=== PATIENT | female | born 1965 | race Two or more races ===

== ENCOUNTER 2016-09-20 07:39 | Emergency (ER) | payer OTHER ==
[~2016-09-20] VITALS: Ht 162.6 cm; Wt 95.3 kg
[~2016-09-20 07:39] MED LIST: ACETAMINOPHEN-1 EAC1 ORAL; ALBUTEROL SULF8.5 GM INH; CYCLOBENZAPRINE10 MG ORAL; IBUPROFEN600 MG ORAL; IBUPROFEN800 MG ORAL; LEVAQUIN500 MG ORAL; MONISTAT 744 GM VG; NITROFURANTOIN100 M2 ORAL; NKM; NORCO 5-325 TA1 EACH ORAL; PRILOSEC20 MG ORAL; TRAMADOL HCL50 MG ORAL; VENTOLIN HFA18 GM INH; ZOFRAN ODT4 MG ORAL
[2016-09-20] MEDS ORDERED: BACTRIM DS TAB1 EAC1 ORAL (08:17)
[2016-09-20 08:37] LABS: APPEARANCE,URINE CLEAR; KETONES,URINE NEGATIVE (NEGATIVE); LEUKOCYTE ESTERASE ,URINE 1+ (NEGATIVE); NITRITE,URINE NEGATIVE (NEGATIVE); PH,URINE 5 (4.5-8.0); PROTEIN,URINE NEGATIVE (NEGATIVE); UROBILINOGEN,URINE NORMAL MG/DL (0.0-1.0)
--- NOTE | 2016-09-20 08:39 | Emergency Room Report ---
History of Present Illness General Chief Complaint: General Complaint Source: Patient Present Illness HPI 51 YO F with right sided nipple/breast ttp since yesterday and able to express "discharge" from nipple with squeezing. Denies fever/chills, chance of , current breast feeding. Denies noticeable rash or appreciable warmth to area. Never had this before. On Ros, endorsing dysuria, polyuria. Allergies: Coded Allergies: PENICILLINS (Verified Allergy, Intermediate, 01/05/15) CEPHALEXIN (Unverified Adverse Reaction, Mild, 09/20/16) Rash Patient History Past Medical History: none Past Surgical History: none Pertinent Family History: none Social History: Denies: alcohol use, drug use, smoking Last Menstrual Period: 09/03/16 Now: No Immunizations: UTD Reviewed Nursing Documentation: PMH: Agreed, PSxH: Agreed Nursing Documentation-PMH Past Medical History: No History, Except For Hx Asthma: Yes Review of Systems All Other Systems: negative except mentioned in HPI Physical Exam Vital Signs Date Time Temp Pulse Resp B/P Pulse Ox O2 Delivery O2 Flow Rate FiO2 09/20/16 07:47 97.5 84 15 100 Room Air Sp02 EP Interpretation: reviewed, normal General Appearance: normal inspection, well appearing, no apparent distress, alert Head: atraumatic ENT: normal ENT inspection, hearing grossly normal, normal voice Neck: normal inspection, full range of motion, supple, no bony tend Respiratory: normal inspection, lungs clear, normal breath sounds, no respiratory distress, no retraction, no wheezing Cardiovascular #1: regular rate, rhythm, no edema Gastrointestinal: normal inspection, normal bowel sounds, non tender, soft, no guarding, no hernia Genitourinary: no CVA tenderness Musculoskeletal: normal inspection, back normal, normal range of motion, Izabella' s Sign negative Neurologic: normal inspection, alert, oriented x3, responsive, speech normal Psychiatric: normal inspection, judgement/insight normal, mood/affect normal Skin: other - Done with [employer] present: Examined right breast: significant ttp to right nipple/areola. Mild swelling of nipple. No active discharge or bleeding. Medical Decision Making Diagnostic Impression: Primary Impression: Dysuria Additional Impression: Mastitis in female ER Course Likely right sided mastitis, cellulitis. Patient endorses PCN allergy and adverse reaction to Keflex. Will Rx DS Bactrim UA: 2-4WBC, few bacteria. Not obvious UTI, could be early. bactrim should cover concomitant UTI DC home Last Vital Signs Date Time Temp Pulse Resp B/P Pulse Ox O2 Delivery O2 Flow Rate FiO2 09/20/16 08:03 80 14 Room Air 09/20/16 07:47 97.5 100 Status: improved Disposition: HOME, SELF-CARE Condition: Improved Scripts Trimethoprim/Sulfamethoxazole 160/800* (BACTRIM DS TABLET*) 1 Each Tablet 1 TAB ORAL Q12H for 7 Days, #14 TAB 0 Refills Prov: BISHOP HOOK M.D. 09/20/16 Referrals: [facility],REFERRING (PCP) Patient Instructions: Mastitis, [id number] Additional Instructions: - Take all antibiotics as prescribed - Apply hot compress to right breast/nipple 3x a day - Follow up with your primary doctor for referral to specialist for worsening pain/swelling to right breast BISHOP HOOK M.D. Sep 20, 2016 08:39
[2016-09-20 08:45] LABS: BACTERIA,URINE FEW /HPF; SQUAMOUS EPITHELIAL CELL,UR FEW /LPF (NONE/OCC)
[2016-09-20 09:08] VITALS: BP 124/70
== END 2016-09-20 09:10 | disposition home or self-care (01) ==
LOC: EMR 08:20
DX: R30.0 Dysuria (principal); N61.0 Mastitis without abscess; J45.909 Unspecified asthma, uncomplicated; Z88.0 Allergy status to penicillin
CPT/HCPCS: 81003; 81025; 99283

== ENCOUNTER 2017-01-14 14:40 | Emergency (ER) | payer OTHER ==
[~2017-01-14] VITALS: Ht 162.6 cm; Wt 95.3 kg
[~2017-01-14 14:40] MED LIST changes: +BACTRIM DS TAB1 EAC1 ORAL
[2017-01-14] MEDS ORDERED: ALBUTEROL SULF8.5 GM INH (14:51)
[2017-01-14] MEDS ORDERED: PREDNISONE20 MG ORAL (14:51)
--- NOTE | 2017-01-14 14:58 | Emergency Room Report ---
History of Present Illness General Chief Complaint: Dyspnea/Respdistress Source: Patient Present Illness HPI 51YOF walk-in with SOB for 2 days subjective dyspnea. + history of asthma. Non -smoker. Recent URI. No fever/chills Ran out of home ventolin last night Never intubated/BIPAPed in the past for asthma. Allergies: Coded Allergies: PENICILLINS (Verified Allergy, Intermediate, 01/05/15) CEPHALEXIN (Unverified Adverse Reaction, Mild, 09/20/16) Rash Patient History Past Medical History: asthma Past Surgical History: none Pertinent Family History: none Social History: Denies: alcohol use, drug use, smoking Now: No Immunizations: UTD Reviewed Nursing Documentation: PMH: Agreed, PSxH: Agreed Nursing Documentation-PMH Hx Asthma: Yes Review of Systems All Other Systems: negative except mentioned in HPI Physical Exam Vital Signs Date Time Temp Pulse Resp B/P Pulse Ox O2 Delivery O2 Flow Rate FiO2 01/14/17 14:41 98.1 82 15 143/78 98 Sp02 EP Interpretation: reviewed, normal General Appearance: normal inspection, well appearing, no apparent distress, alert, GCS 15, non-toxic, other - Ambulating back and forth from room to bathroom in ED without distress Head: normocephalic, atraumatic Eyes: bilateral eye EOMI, bilateral eye PERRL ENT: normal ENT inspection, hearing grossly normal, normal voice Neck: normal inspection, full range of motion, supple, no bony tend Respiratory: normal inspection, lungs clear, normal breath sounds, no respiratory distress, no retraction, no accessory muscle use, no wheezing, speaking full sentences Cardiovascular #1: regular rate, rhythm, no edema Gastrointestinal: normal inspection, normal bowel sounds, non tender, soft, no guarding, no hernia Genitourinary: no CVA tenderness Musculoskeletal: normal inspection, back normal, normal range of motion, Izabella' s Sign negative Neurologic: normal inspection, alert, oriented x3, responsive, wastewater analyst III-XII nml as tested, motor strength/tone normal, speech normal Psychiatric: normal inspection, judgement/insight normal, mood/affect normal, anxious Skin: normal inspection, normal color, no rash Lymphatic: normal inspection Medical Decision Making Diagnostic Impression: Primary Impression: Dyspnea Qualified Codes: R06.00 - Dyspnea, unspecified ER Course - VSS. Afebrile. Not hypoxic. Not tachypnic. - ?even if this is asthma attack. However recent URI symptoms could have triggered. - Significant component of anxiety - Per PERC no need for d-dimer. Likely low probability of PE. Also ECG does not show sinus tach or S1Q3T3 or right heart strain - ECG is NSR. No ischemia. Unlikely ACS. - Improved symptoms after albuterol - Lungs CTAB. Low suspicion for PNA, CHF - Prednisone given in ED along with Rx - Rx Ventolin PMD followup as needed DC EKG Diagnostic Results Rate: normal Rhythm: NSR ST Segments: no acute changes ASA given to the pt in ED: No Chest X-Ray Diagnostic Results Chest X-Ray Diagnostic Results : Chest X-Ray Ordered: Yes # of Views/Limited/Complete: 1 View Indication: Shortness of Breath EP Interpretation: Yes Interpretation: no consolidation, no effusion, no pneumothorax, no acute cardiopulmonary disease Impression: No acute disease Interpreting ER Provider: Electronically signed by Dr Hook Last Vital Signs Date Time Temp Pulse Resp B/P Pulse Ox O2 Delivery O2 Flow Rate FiO2 01/14/17 14:41 98.1 82 15 143/78 98 Status: improved Disposition: HOME, SELF-CARE Condition: Improved Scripts Prednisone* (PREDNISONE*) 20 Mg Tablet 40 MG ORAL DAILY for 3 Days, #3 TAB Prov: BISHOP HOOK M.D. 01/14/17 Albuterol Sulfate* (ALBUTEROL SULFATE MDI*) 8.5 Gm Hfa.aer.ad 2 PUFF INH Q6H, #1 EA 0 Refills Prov: BISHOP HOOK M.D. 01/14/17 Patient Instructions: Asthma, Adult, [id number] Additional Instructions: - Take prednisone each morning next 3 days - Use albuterol pump as needed - Return to ER for worsening SOB, chest pain BISHOP HOOK M.D. Jan 14, 2017 14:58
[2017-01-14] MEDS ORDERED: PredniSONE 20mg tab ORAL ONE (15:00)
[2017-01-14] MEDS ORDERED: Albuterol ud Inhalation HHN ONE (15:00)
[2017-01-14 15:01] VITALS: BP 143/78
[2017-01-14 15:38] VITALS: BP 125/75
== END 2017-01-14 15:40 | disposition home or self-care (01) ==
LOC: EMR 15:40
DX: R06.00 Dyspnea, unspecified (principal); J45.909 Unspecified asthma, uncomplicated; Z88.0 Allergy status to penicillin; Z88.1 Allergy status to other antibiotic agents
CPT/HCPCS: 93005; 94640; 94664; 99284

== ENCOUNTER 2017-03-10 14:17 | Emergency (ER) | payer OTHER ==
[~2017-03-10] VITALS: Ht 165.1 cm; Wt 96.2 kg
[~2017-03-10 14:17] MED LIST changes: +PREDNISONE20 MG ORAL
[2017-03-10 14:33] VITALS: BP 132/91
[2017-03-10] MEDS ORDERED: Vancomycin 1gm inj IVPB ONE (14:44)
[2017-03-10] MEDS ORDERED: fentaNYL 100 mcg/2 mL IV ONE (14:45)
[2017-03-10] MEDS ORDERED: Ketorolac 30mg Inj IV ONE (14:45)
[2017-03-10] MEDS ORDERED: Vancomycin 1 GM in NS 275 ML IV ONE (14:45)
[2017-03-10 14:48] LABS: BASOPHILS % (AUTO) 1.3 % (0.0-2.0); EOSINOPHILS % (AUTO) 2.3 % (0.0-3.0); LYMPHOCYTES % (AUTO) 47.5 % (20.0-45.0); MEAN CORPUSCULAR HGB CONC 32.9 G/DL (32.0-36.0); MEAN CORPUSCULAR VOLUME 91 FL (80-99); MEAN PLATELET VOLUME 7.8 FL (6.5-10.1); MONOCYTES % (AUTO) 8.1 % (1.0-10.0); NEUTROPHILS % (AUTO) 40.9 % (45.0-75.0); PLATELET COUNT 217 K/UL (150-450); RED CELL DISTRIBUTION WIDTH 12.3 % (11.6-14.8); WHITE BLOOD COUNT 7.1 K/UL (4.8-10.8)
[2017-03-10 15:10] LABS: ALANINE AMINOTRANSFERASE 15 U/L (3-33); ALBUMIN/GLOBULIN RATIO 1.5 (1.0-2.7); ANION GAP 12 (5-15); ASPARTATE AMINO TRANSFERASE 15 U/L (5-40); CALCIUM 9.2 mg/dL (8.6-10.2); CARBON DIOXIDE 25 mEQ/L (20-30); CHLORIDE 103 mEQ/L (98-107); CREATININE 0.8 mg/dL (0.5-0.9); GLOMERULAR FILTRATION RATE > 60 mL/min (>60); HEMOLYSIS 9; POTASSIUM 4.3 mEQ/L (3.4-4.9); SODIUM 140 mEQ/L (135-145); TOTAL PROTEIN 6.8 g/dL (6.6-8.7)
[2017-03-10] MEDS ORDERED: Tetanus/Diptheria/Pertussis Vaccine 0.5ml Syr IM ONE ×2 (15:21→15:30)
--- NOTE | 2017-03-10 15:22 | Emergency Room Report ---
History of Present Illness General Chief Complaint: Pain Source: Patient Present Illness HPI Patient presents with worsening infection of her right foot. She traveled to [place] and had tight shoes that caused a blister. This has gotten more infected and worsened even with local care with Neosporin. Her tetanus is not up to date. The pain is severe. She's also had swelling and redness there. She denies any calf pain. She denies diabetes. Pain 20/10 (though in no distress), sharp, swelling radiated towards ankle. Able to ambulate. No fevers, chills, SOB, cough, hemoptysis, dysuria. Allergies: Coded Allergies: PENICILLINS (Verified Allergy, Intermediate, 01/05/15) CEPHALEXIN (Unverified Adverse Reaction, Mild, 09/20/16) Rash Patient History Past Medical History: see triage record Social History: Denies: smoking Social History Narrative with children Reviewed Nursing Documentation: PMH: Agreed, PSxH: Agreed Nursing Documentation-PMH Hx Asthma: Yes Review of Systems All Other Systems: negative except mentioned in HPI Physical Exam Vital Signs Date Time Temp Pulse Resp B/P (MAP) Pulse Ox O2 Delivery O2 Flow Rate FiO2 03/10/17 14:22 98.1 72 15 132/91 99 Room Air Sp02 EP Interpretation: reviewed, normal General Appearance: well appearing, no apparent distress, GCS 15 Head: normocephalic Eyes: bilateral eye normal inspection ENT: moist mucus membranes Neck: supple Respiratory: lungs clear, normal breath sounds Cardiovascular #1: regular rate, rhythm Cardiovascular #2: 2+ radial (R) Gastrointestinal: normal inspection, normal bowel sounds, non tender, no mass, non-distended Musculoskeletal: digits/nails normal, gait/station normal, normal range of motion, inflammation, swelling - foot Neurologic: alert, oriented x3, motor strength/tone normal, sensory intact Psychiatric: mood/affect normal Skin: abrasions - and ulceration dorsum or R foot Medical Decision Making Diagnostic Impression: Primary Impression: Cellulitis of right foot ER Course Patient presents with worsening infection on R foot. DDx: cellulitis, abscess. Doubt osteo. Consider MRSA and strep. Needs tetanus. Fairly significant infection with pain. Will treat with IV vanco and analgesia. Patient does not want x-ray and it is doubtful one would help with diagnosis or treatment. Need to exclude diabetes or renal disease. Labs unremarkable. Improved with analgesia. Discussed importance of elevation. Patient stable for outpatient observation and treatment. Laboratory Tests Test 03/10/17 14:30 White Blood Count 7.1 K/UL (4.8-10.8) Red Blood Count 4.40 M/UL (4.20-5.40) Hemoglobin 13.2 G/DL (12.0-16.0) Hematocrit 40.1 % (37.0-47.0) Mean Corpuscular Volume 91 FL (80-99) Mean Corpuscular Hemoglobin 30.0 PG (27.0-31.0) Mean Corpuscular Hemoglobin Concent 32.9 G/DL (32.0-36.0) Red Cell Distribution Width 12.3 % (11.6-14.8) Platelet Count 217 K/UL (150-450) Mean Platelet Volume 7.8 FL (6.5-10.1) Neutrophils (%) (Auto) 40.9 % (45.0-75.0) L Lymphocytes (%) (Auto) 47.5 % (20.0-45.0) H Monocytes (%) (Auto) 8.1 % (1.0-10.0) Eosinophils (%) (Auto) 2.3 % (0.0-3.0) Basophils (%) (Auto) 1.3 % (0.0-2.0) Sodium Level 140 mEQ/L (135-145) Potassium Level 4.3 mEQ/L (3.4-4.9) Chloride Level 103 mEQ/L (98-107) Carbon Dioxide Level 25 mEQ/L (20-30) Anion Gap 12 (5-15) Blood Urea Nitrogen 14 mg/dL (7-23) Creatinine 0.8 mg/dL (0.5-0.9) Estimate Glomerular Filtration Rate > 60 mL/min (>60) Glucose Level 93 mg/dL (74-106) Calcium Level 9.2 mg/dL (8.6-10.2) Total Bilirubin 0.4 mg/dL (0.0-1.2) Aspartate Amino Transferase (AST) 15 U/L (5-40) Alanine Aminotransferase (ALT) 15 U/L (3-33) Alkaline Phosphatase 49 U/L (35-104) Total Protein 6.8 g/dL (6.6-8.7) Albumin 4.1 g/dL (3.5-5.2) Globulin 2.7 g/dL Albumin/Globulin Ratio 1.5 (1.0-2.7) Last Vital Signs Date Time Temp Pulse Resp B/P (MAP) Pulse Ox O2 Delivery O2 Flow Rate FiO2 03/10/17 16:11 70 16 128/87 99 Room Air 03/10/17 16:11 98.1 Status: improved Disposition: HOME, SELF-CARE Condition: Improved Scripts Ibuprofen* (MOTRIN*) 600 Mg Tablet 600 MG ORAL Q6H Y for For Pain, #20 TAB Prov: Francisco Childers M.D. 03/10/17 Tramadol Hcl* (ULTRAM*) 50 Mg Tablet 50 MG ORAL Q6H Y for For Pain, #16 TAB 0 Refills Prov: Francisco Childers M.D. 03/10/17 Levofloxacin* (LEVAQUIN*) 500 Mg Tablet 500 MG ORAL DAILY, #7 TAB Prov: Francisco Childers M.D. 03/10/17 Francisco Childers M.D. Mar 10, 2017 15:22
[2017-03-10] MEDS ORDERED: Bacitracin Oint UD TOPIC ONE (15:30)
[2017-03-10] MEDS ORDERED: IBUPROFEN600 MG ORAL (15:33)
[2017-03-10] MEDS ORDERED: TRAMADOL HCL50 MG ORAL (15:33)
[2017-03-10] MEDS ORDERED: LEVAQUIN500 MG ORAL (15:33)
[2017-03-10 16:11] VITALS: BP_SYST 128; BP_SYST 132; BP_DIAS 87; BP_DIAS 91
== END 2017-03-10 16:12 | disposition home or self-care (01) ==
LOC: EMR 14:50
DX: L03.115 Cellulitis of right lower limb (principal); Z23 Encounter for immunization; J45.909 Unspecified asthma, uncomplicated; Z88.0 Allergy status to penicillin; Z88.1 Allergy status to other antibiotic agents
CPT/HCPCS: 36415; 80053; 85025; 90471; 90715; 96365; 96375; 99284; J1885; J2405; J3010; J3370; J7050

== ENCOUNTER 2017-06-20 08:52 | Emergency (ER) | payer OTHER ==
[~2017-06-20] VITALS: Ht 162.6 cm; Wt 90.7 kg
[2017-06-20] MEDS ORDERED: Sodium Chloride 500ML 500 ML IV ONE (09:14)
[2017-06-20] MEDS ORDERED: Morphine Sulfate 4mg/ml Inj IVP ONE ×2 (09:15→11:15)
[2017-06-20 09:35] VITALS: BP 160/90
[2017-06-20 09:40] LABS: APPEARANCE,URINE CLEAR; KETONES,URINE NEGATIVE (NEGATIVE); LEUKOCYTE ESTERASE ,URINE NEGATIVE (NEGATIVE); NITRITE,URINE NEGATIVE (NEGATIVE); PH,URINE 7 (4.5-8.0); PROTEIN,URINE NEGATIVE (NEGATIVE); UROBILINOGEN,URINE NORMAL MG/DL (0.0-1.0)
[2017-06-20 09:41] LABS: BASOPHILS % (AUTO) 1.7 % (0.0-2.0); EOSINOPHILS % (AUTO) 2.1 % (0.0-3.0); LYMPHOCYTES % (AUTO) 42.3 % (20.0-45.0); MEAN CORPUSCULAR HEMOGLOBIN 29.8 PG (27.0-31.0); MEAN CORPUSCULAR HGB CONC 32.7 G/DL (32.0-36.0); MEAN CORPUSCULAR VOLUME 91 FL (80-99); MEAN PLATELET VOLUME 9.7 FL (6.5-10.1); MONOCYTES % (AUTO) 8.1 % (1.0-10.0); NEUTROPHILS % (AUTO) 45.8 % (45.0-75.0); PLATELET COUNT 223 K/UL (150-450); RED CELL DISTRIBUTION WIDTH 12.1 % (11.6-14.8)
[2017-06-20 09:51] LABS: BACTERIA,URINE OCCASIONAL /HPF; SQUAMOUS EPITHELIAL CELL,UR OCCASIONAL /LPF (NONE/OCC); WBC,URINE 0-2 /HPF (0 - 2)
[2017-06-20 10:07] LABS: ANION GAP 9 mmol/L (5-15); CALCIUM 8.9 MG/DL (8.5-10.1); CARBON DIOXIDE 27 MMOL/L (21-32); CHLORIDE 104 MMOL/L (98-107); CREATININE 0.9 MG/DL (0.55-1.30); GLOMERULAR FILTRATION RATE > 60 mL/min (>60); POTASSIUM 3.9 MMOL/L (3.5-5.1); SODIUM 140 MMOL/L (136-145)
[2017-06-20 10:12] LABS: ALANINE AMINOTRANSFERASE 26 U/L (12-78); ALBUMIN/GLOBULIN RATIO 1.1 (1.0-2.7); ASPARTATE AMINO TRANSFERASE 18 U/L (15-37); LIPASE 140 U/L (73-393); TOTAL PROTEIN 7.7 G/DL (6.4-8.2)
[2017-06-20] MEDS ORDERED: Ketorolac 30mg Inj IV ONE (11:15)
[2017-06-20 11:19] VITALS: BP 139/82
--- NOTE | 2017-06-20 11:27 | Emergency Room Report ---
History of Present Illness General Chief Complaint: Abdominal Pain Source: Patient Present Illness HPI 52-year-old female presents ED complaining of lower abdominal pain. Started last night. Pain is pelvic, sharp, 10 out of 10, nonradiating. Patient also noted some vaginal bleeding last night. Denies fevers or chills. Denies chest pain or shortness of breath. No other aggravating relieving factors. Denies any other associated symptoms Allergies: Coded Allergies: PENICILLINS (Verified Allergy, Intermediate, 01/05/15) CEPHALEXIN (Unverified Adverse Reaction, Mild, 09/20/16) Rash Patient History Past Medical History: asthma Past Surgical History: none Pertinent Family History: none Social History: Denies: smoking, alcohol use, drug use Last Menstrual Period: 2 weeks ago Now: No Immunizations: UTD Reviewed Nursing Documentation: PMH: Agreed, PSxH: Agreed Nursing Documentation-PMH Hx Asthma: Yes Review of Systems All Other Systems: negative except mentioned in HPI Physical Exam Vital Signs Date Time Temp Pulse Resp B/P (MAP) Pulse Ox O2 Delivery O2 Flow Rate FiO2 06/20/17 08:58 97.7 69 14 160/90 99 Room Air Sp02 EP Interpretation: reviewed, normal General Appearance: no apparent distress, alert, GCS 15, non-toxic Head: normocephalic, atraumatic Eyes: bilateral eye normal inspection, bilateral eye PERRL ENT: hearing grossly normal, normal pharynx, no angioedema, normal voice Neck: full range of motion, supple/symm/no masses Respiratory: chest non-tender, lungs clear, normal breath sounds, speaking full sentences Cardiovascular #1: regular rate, rhythm, no edema Cardiovascular #2: 2+ carotid (R), 2+ carotid (L), 2+ radial (R), 2+ radial (L) , 2+ dorsalis pedis (R), 2+ dorsalis pedis (L) Gastrointestinal: normal bowel sounds, soft, no rebound, guarding, tenderness - TTP lower abdomen Rectal: deferred Genitourinary: normal inspection, no CVA tenderness Musculoskeletal: back normal, gait/station normal, normal range of motion, non- tender Neurologic: alert, oriented x3, responsive, motor strength/tone normal, sensory intact, speech normal Psychiatric: judgement/insight normal, memory normal, mood/affect normal, no suicidal/homicidal ideation Reflexes: 3+ bicep (R), 3+ bicep (L), 3+ tricep (R), 3+ tricep (L), 3+ knee (R) , 3+ knee (L) Skin: normal color, no rash, warm/dry, well hydrated Lymphatic: no adenopathy Medical Decision Making Diagnostic Impression: Primary Impression: Fibroids Qualified Codes: D25.9 - Leiomyoma of uterus, unspecified ER Course Hospital Course 52-year-old female presents to ED complaining of lower abdominal pain, vaginal bleeding Differential diagnoses include: gastrits, gastroenterits, ectopic , ovarian torsion/cyst, UTI Clinical course Patient placed on stretcher in ED. After initial history and physical I ordered labs, IV fluids and pain meds and pelvic ultrasound. Labs-no leukocytosis, electrolytes okay, beta hCG negative, UA negative Pelvic ultrasound- fibroids Discussed findings with patient. Upon reassessment patient states she feels better wishes to go home Diagnosis - fibroids Stable and discharged to home with Rx [place]. Followup with PMD/RESUME WRITER. Return to ED if symptoms recur or worsen Labs Test 06/20/17 09:09 06/20/17 09:24 Urine Color Pale yellow Urine Appearance Clear Urine pH 7 (4.5-8.0) Urine Specific [place] 1.010 (1.005-1.035) Urine Protein Negative (NEGATIVE) Urine Glucose (UA) Negative (NEGATIVE) Urine Ketones Negative (NEGATIVE) Urine Occult Blood 3+ (NEGATIVE) Urine Nitrite Negative (NEGATIVE) Urine Bilirubin Negative (NEGATIVE) Urine Urobilinogen Normal MG/DL (0.0-1.0) Urine Leukocyte Esterase Negative (NEGATIVE) Urine RBC 5-10 /HPF (0 - 2) Urine WBC 0-2 /HPF (0 - 2) Urine Squamous Epithelial Cells Occasional /LPF Urine Bacteria Occasional /HPF (NONE) Urine HCG, Qualitative Negative White Blood Count 5.0 K/UL (4.8-10.8) Red Blood Count 4.50 M/UL (4.20-5.40) Hemoglobin 13.4 G/DL (12.0-16.0) Hematocrit 41.1 % (37.0-47.0) Mean Corpuscular Volume 91 FL (80-99) Mean Corpuscular Hemoglobin 29.8 PG (27.0-31.0) Mean Corpuscular Hemoglobin Concent 32.7 G/DL (32.0-36.0) Red Cell Distribution Width 12.1 % (11.6-14.8) Platelet Count 223 K/UL (150-450) Mean Platelet Volume 9.7 FL (6.5-10.1) Neutrophils (%) (Auto) 45.8 % (45.0-75.0) Lymphocytes (%) (Auto) 42.3 % (20.0-45.0) Monocytes (%) (Auto) 8.1 % (1.0-10.0) Eosinophils (%) (Auto) 2.1 % (0.0-3.0) Basophils (%) (Auto) 1.7 % (0.0-2.0) Sodium Level 140 MMOL/L (136-145) Potassium Level 3.9 MMOL/L (3.5-5.1) Chloride Level 104 MMOL/L (98-107) Carbon Dioxide Level 27 MMOL/L (21-32) Anion Gap 9 mmol/L (5-15) Blood Urea Nitrogen 11 mg/dL (7-18) Creatinine 0.9 MG/DL (0.55-1.30) Estimat Glomerular Filtration Rate > 60 mL/min (>60) Glucose Level 99 MG/DL (74-106) Calcium Level 8.9 MG/DL (8.5-10.1) Total Bilirubin 0.5 MG/DL (0.2-1.0) Aspartate Amino Transf (AST/SGOT) 18 U/L (15-37) Alanine Aminotransferase (ALT/SGPT) 26 U/L (12-78) Alkaline Phosphatase 47 U/L (46-116) Total Protein 7.7 G/DL (6.4-8.2) Albumin 4.0 G/DL (3.4-5.0) Globulin 3.7 g/dL Albumin/Globulin Ratio 1.1 (1.0-2.7) Lipase 140 U/L (73-393) CT/MRI/US Diagnostic Results CT/MRI/US Diagnostic Results : Imaging Test Ordered: Pelvic US Impression fibroids. collapsed uterine follicle Last Vital Signs Date Time Temp Pulse Resp B/P (MAP) Pulse Ox O2 Delivery O2 Flow Rate FiO2 06/20/17 11:19 97.9 14 139/82 99 Room Air 06/20/17 08:58 69 Status: improved Disposition: ADMITTED INPATIENT Condition: Stable Scripts Hydrocodone Bit/Acetaminophen 5-325* (NORCO 5-325*) 1 Each Tablet 1 TAB ORAL Q6H Y for For Pain, #20 TAB 0 Refills Prov: PATO ANTONIO M.D. 06/20/17 Referrals: [facility],REFERR[facility] (PCP) PATO ANTONIO M.D. Jun 20, 2017 11:26
--- NOTE | 2017-06-20 11:36 | Diagnostic Imaging Report ---
Indication: Left-sided pelvic pain and heavy vaginal bleeding Technique: Transabdominal and transvaginal images Comparison: 01/21/2015 Findings: Uterus measures 11.9 cm length by 5 cm AP. The endometrium measures 14 mm thick. The myometrium demonstrates small presumed fibroids measuring up to 14 mm diameter. Small cervical nabothian cysts are incidentally noted The left ovary measures 3 cm in length. The right ovary measures 4.3 cm in length. Both ovaries demonstrate what are probably collapsed follicles. Small amount of free cul-de-sac fluid is demonstrated. Previously demonstrated left ovarian hemorrhagic cyst is not evident currently. The small fibroids were not demonstrated previously Impression: 14 mm thick endometrium. This can be normal if patient is still premenopausal, abnormal if patient is perimenopausal. Small uterine fibroids Bilateral presumed collapsed ovarian follicles. No adnexal mass Small amount of free cul-de-sac fluid, presumably physiologic
[2017-06-20] MEDS ORDERED: NORCO 5-325 TA1 EACH ORAL (12:00)
[2017-06-20 12:22] VITALS: BP 139/82
== END 2017-06-20 12:25 | disposition home or self-care (01) ==
LOC: EMR 09:50
DX: D25.9 Leiomyoma of uterus, unspecified (principal); N88.8 Other specified noninflammatory disorders of cervix uteri; Z88.0 Allergy status to penicillin; J45.909 Unspecified asthma, uncomplicated
CPT/HCPCS: 36415; 76830; 76856; 80053; 81003; 81025; 83690; 85025; 96361; 96374; 96375; 96376; 99284; J1885; J2270